=== PATIENT | female | born 1995 | race Caucasian/White ===

== ENCOUNTER 2021-07-23 13:25 | Emergency (ER) | payer SELFPAY ==
[~2021-07-23] VITALS: Ht 157.5 cm; Wt 82.0 kg
[2021-07-23] MEDS ORDERED: IBUPROFEN 800MG TABLET PO ONE (15:00)
[2021-07-23] MEDS ORDERED: ACETAMINOPHEN 325MG TABLET PO ONE (15:00)
[2021-07-23] MEDS ORDERED: METH-773 MT (15:20)
[2021-07-23] MEDS ORDERED: IBUP-2030 MT (15:20)
[2021-07-23 15:22] VITALS: BP 101/60
== END 2021-07-23 16:05 | disposition home or self-care (01) ==
LOC: ER 13:25
DX: R51.9 Headache, unspecified (principal); M54.9 Dorsalgia, unspecified; V49.9XXA Car occupant (driver) (passenger) injured in unspecified traffic accident, initial encounter; Y93.89 Activity, other specified; Y92.89 Other specified places as the place of occurrence of the external cause; Y99.8 Other external cause status
CPT/HCPCS: 99283